=== PATIENT | female | born 1955 | race Caucasian/White ===

== ENCOUNTER 2023-07-02 11:54 | Outpatient (CLI) | payer MEDICARE, OTHER, SELFPAY | END 2023-07-02 11:55 | disposition home or self-care (01) | LOC: NFLDREF 07-04 05:54 | PROVIDERS: Visit Provider Nurse Practitioner Family | DX: R35.0 Frequency of micturition (principal); N39.0 Urinary tract infection, site not specified; B37.9 Candidiasis, unspecified; N30.01 Acute cystitis with hematuria | CPT/HCPCS: 87086 ==

== ENCOUNTER 2023-07-11 11:55 | Outpatient (CLI) | payer MEDICARE, OTHER, SELFPAY | END 2023-07-11 11:56 | disposition home or self-care (01) | LOC: NFLDREF 07-17 06:11 | PROVIDERS: Visit Provider Physician Assistant | DX: R30.0 Dysuria (principal); N39.0 Urinary tract infection, site not specified; R39.16 Straining to void | CPT/HCPCS: 87086 ==